=== PATIENT | female | born 1975 | race African-American/Black ===

== ENCOUNTER 2024-01-19 21:45 | Emergency (ER) | payer BC, MEDICAID ==
[~2024-01-19] VITALS: Ht 165.1 cm; Wt 66.0 kg
[2024-01-19 21:59] VITALS: TEMP 97.8; O2SAT 98
[2024-01-20] MEDS ORDERED: TOPUD MT (01:10)
[2024-01-20 01:15] VITALS: BP 152/101; PULSE 88; RESP 17
[2024-01-20] MEDS: HYDROCODONE/ACETAMINOPHEN 5/325MG TABLET PO ONE (01:15)
== END 2024-01-20 01:49 | disposition home or self-care (01) ==
LOC: ER 21:45
DX: S99.922A Unspecified injury of left foot, initial encounter (principal); I10 Essential (primary) hypertension; Z90.710 Acquired absence of both cervix and uterus; W18.39XA Other fall on same level, initial encounter; Y93.89 Activity, other specified; Y92.89 Other specified places as the place of occurrence of the external cause; Y99.8 Other external cause status
CPT/HCPCS: 73630; 99283